=== PATIENT | male | born 1960 | race Two or more races ===

== ENCOUNTER 2018-08-24 17:07 | Emergency (ER) | payer OTHER ==
--- NOTE | 2018-08-24 17:11 | PDOC ---
Rapid Medical Evaluation Chief Complaint: Urinary Problem Time Seen by Provider: 08/24/18 17:10 Medical Evaluation: Allergies Allergy/AdvReac Type Severity Reaction Status Date / Time No Known Allergies Allergy Verified 08/24/18 17:10 08/24/18 17:10 I have performed a brief in-person evaluation of this patient. The patient presents with a chief complaint of:urinary retention a/ lower abd discomfort. H/o htn, cad w/ 2 stents Pertinent physical exam findings:stable I have ordered the following:labs/ua/ucx, liu (placed by triage nurse) The patient will proceed to the ED for further evaluation. Discharge Disposition - Diagnosis Urinary retention - Referrals Referrals: José Miguel Bailey MD [Primary Care Provider] - - Patient Instructions - Post Discharge Activity
[2018-08-24 17:13] VITALS: PULSE 67; TEMP 98.6; BMI 28.2
--- NOTE | 2018-08-24 17:28 | PDOC ---
History of Present Illness - General Chief Complaint: Urinary Problem Stated Complaint: CONSTIPATION Time Seen by Provider: 08/24/18 17:10 - History of Present Illness Initial Comments: 08/24/18 17:28 57 year old man, with a significant past medical history of hypertension, smoking, CAD (2 stents) who presents with 2 days of urinary retention with 6+ attempts to urinate but only dribbling urine. He developed suprapubic pain yesterday afternoon and L flank pain this afternoon. He was seen by PCP (Lynn) 3 weeks ago where he had a prostate exam that was negative. He denies any recent blood in the urine, testicular pain, recent travel, denies any new medications. Additionally he notes that he has had swelling in his legs bilaterally for 5 months, only occurring at the end of the day when he has been on his feet. Smokes 1ppd for > 6 years PCP: Lynn Renal: Nancy Past History - Past Medical History Allergies/Adverse Reactions: Allergies Allergy/AdvReac Type Severity Reaction Status Date / Time No Known Allergies Allergy Verified 08/24/18 17:10 Home Medications: Ambulatory Orders Aspirin [Tala Chewable Aspirin] 81 mg PO DAILY 04/05/16 Bisoprolol Fumarate [Zebeta (Nf) -] 5 mg PO DAILY 04/05/16 Atorvastatin Ca [Lipitor] 10 mg PO HS #20 tablet 04/06/16 Cardiac Disorders: Yes (stent cardiac CKD) COPD: No HTN: Yes - Surgical History Cardiac Surgery: Yes (stent) - Immunization History Immunization Up to Date: Yes - Suicide/Smoking/Psychosocial Hx Smoking History: Current every day smoker Have you smoked in the past 12 months: Yes Number of Cigarettes Smoked Daily: 20 Information on smoking cessation initiated: No *Physical Exam - Vital Signs Last Vital Signs Temp Pulse Resp BP Pulse Ox 98.6 F 67 18 160/93 99 08/24/18 17:10 08/24/18 17:10 08/24/18 17:10 08/24/18 17:10 08/24/18 17:10 - Physical Exam Comments: 08/24/18 17:55 GENERAL: Awake, alert, and fully oriented, in no acute distress HEAD: No signs of trauma, normocephalic, atraumatic EYES: EOMI, sclera anicteric, conjunctiva clear ENT: oropharynx clear without exudates. Moist mucosa NECK: Normal ROM, supple LUNGS: No distress, speaks full sentences, clear to auscultation bilaterally HEART: Regular rate and rhythm, normal S1 and S2, no murmurs, rubs or gallops, peripheral pulses normal and equal bilaterally. ABDOMEN: Soft, suprapubic tenderness to palpation, normoactive bowel sounds. No guarding, no rebound. No masses EXTREMITIES : Normal inspection, Normal range of motion, no edema. No clubbing or cyanosis. NEUROLOGICAL: Cranial nerves II through XII grossly intact. Normal speech, normal gait, no focal sensorimotor deficits SKIN: Warm, Dry, normal turgor, no rashes or lesions noted GENITAL: R testicle w/ elevate lie, no inguinal lymphadenopathy, tenderness to testicular palpation, no erythema, lesions or ulcers Moderate Sedation - Procedure Monitoring Vital Signs: Procedure Monitoring Vital Signs Temperature 98.6 F 08/24/18 17:10 Pulse Rate 67 08/24/18 17:10 Respiratory Rate 18 08/24/18 17:10 Blood Pressure 160/93 08/24/18 17:10 O2 Sat by Pulse Oximetry (%) 99 08/24/18 17:10 ED Treatment Course - LABORATORY CBC & Chemistry Diagram: 08/24/18 18:00 08/24/18 18:00 Medical Decision Making - Medical Decision Making 08/24/18 17:50 57 year old man, with a significant past medical history of hypertension, smoking, CAD (2 stents) who presents with 2 days of urinary retention with 6+ attempts to urinate but only dribbling urine. He developed suprapubic pain yesterday afternoon and L flank pain this afternoon. He was seen by PCP (Lynn) 3 weeks ago where he had a prostate exam that was negative. He denies any recent blood in the urine, testicular pain, recent travel, denies any new medications. ED Course: Consider BPH vs prostate / bladder cancer vs neurogenic bladder Patient with tenderness to testicular palpation will r/o testicular torsion as the R testicle has an elevated lie Dr. Cruz made aware of patient, requests US and Sanna for nephro 08/24/18 19:39 labwork within normal limits pending US read 08/24/18 20:18 Attending spoke with Nancy agree that patient can be dsicharged home with flomax, leg bag and follow to Dr. Jose Velez *DC/Admit/Observation/Transfer Diagnosis at time of Disposition: Urinary retention - Discharge Dispostion Disposition: HOME Condition at time of disposition: Stable Decision to Admit order: No - Referrals Referrals: José Miguel Bailey MD [Primary Care Provider] - - Patient Instructions Printed Discharge Instructions: DI for Urinary Retention in Men Additional Instructions: You were seen in the ED for complaints of urinary retention In the ED you were evaluated with labwork and imaging. Your results were largely unremarkable. There does not appear to be an acute need for immediate hospitalization. You are advised to follow up with your Primary Care Physician within 1 week. You were given a referral to Nephrology and are advised to follow up within 1 week. You were given a prescription for Flomax and are advised to take the medication as indicated. Return to the ED immediately if you experience worsening urinary retention, blood in the urine, pelvic pain or pressure, flank or side pain, fevers, chest pain or loss of consciousness. - Post Discharge Activity
[2018-08-24 17:51] LABS: URINE APPEARANCE CLEAR; URINE BILIRUBIN NEGATIVE (<2.0 mg/dL); URINE COLOR LTYELLOW; URINE GLUCOSE (UA) NEGATIVE (NEGATIVE); URINE KETONE NEGATIVE (NEGATIVE); URINE LEUK ESTERASE NEGATIVE (NEGATIVE); URINE NITRITE NEGATIVE (NEGATIVE); URINE PROTEIN NEGATIVE (NEGATIVE); URINE UROBILINOGEN NEGATIVE mg/dL (0.2-1.0)
[2018-08-24 18:17] LABS: URINE MUCUS RARE
[2018-08-24 18:30] LABS: BASO % 0.2 % (0-2.0); EOS % 0.5 % (0-4.5); HEMATOCRIT 44.2 % (35.4-49); HEMOGLOBIN 15.3 GM/dL (11.7-16.9); MCH 32.3 pg (25.7-33.7); MCHC 34.5 g/dl (32.0-35.9); MEAN CELL VOLUME 93.5 fl (80-96); MEAN PLT VOLUME 8.1 fl (7.5-11.1); MONO % 5.9 % (3.8-10.2); NEUT % 80.4 % (42.8-82.8); PLATELET COUNT 210 K/MM3 (134-434); RBC 4.73 M/mm3 (4.00-5.60); RDW 13.7 % (11.9-15.9); WHITE BLOOD COUNT 7.6 K/mm3 (4.0-10.0)
[2018-08-24 18:41] VITALS: BP 123/77
[2018-08-24 19:18] LABS: ALK PHOS 61 U/L (45-117); ANION GAP 7 MMOL/L (8-16); BILIRUBIN,TOTAL 0.4 mg/dL (0.2-1); BLOOD UREA NITROGEN 19 mg/dL (7-18); CALCIUM 10.1 mg/dL (8.5-10.1); CHLORIDE 110 mmol/L (98-107); CO2 26 mmol/L (21-32); GLUCOSE,RANDOM 93 mg/dL (74-106); SGOT/AST 19 U/L (15-37); SGPT/ALT 24 U/L (13-61); SODIUM 143 mmol/L (136-145); TOT PROT 6.9 g/dl (6.4-8.2)
--- NOTE | 2018-08-24 19:22 | PDOC ---
Attending Attestation - HPI HPI: 08/24/18 19:38 The patient is a 57 year old male with a PMH of HTN, smoking, CAD (2 stents) who presents to the ER with urinary retention for the past 2 days. Patient is also complaining of suprapubic pain since yesterday and left flank pain today. Patient was seen by PCP, Dr. Bailey, 3 weeks ago and had a negative prostate exam. Patient admits to BL leg swelling for the past 5 months, but denies any cp, sob , fever, chills, N/V/D/C. PCP: Lynn Renal: [facility] Social Hx: Smokes 1ppd for > 6 years. Denies alcohol or drug use. - Physicial Exam PE: 08/24/18 19:38 GENERAL: Awake, alert, and fully oriented, in no acute distress HEAD: No signs of trauma, normocephalic, atraumatic EYES: EOMI, sclera anicteric, conjunctiva clear ENT: oropharynx clear without exudates. Moist mucosa NECK: Normal ROM, supple LUNGS: No distress, speaks full sentences, clear to auscultation bilaterally HEART: Regular rate and rhythm, normal S1 and S2, no murmurs, rubs or gallops, peripheral pulses normal and equal bilaterally. ABDOMEN: Soft, suprapubic tenderness to palpation, normoactive bowel sounds. No guarding, no rebound. No masses EXTREMITIES : Normal inspection, Normal range of motion, no edema. No clubbing or cyanosis. NEUROLOGICAL: Cranial nerves II through XII grossly intact. Normal speech, normal gait, no focal sensorimotor deficits SKIN: Warm, Dry, normal turgor, no rashes or lesions noted GENITAL: (+) Liu in place, draining clear yellow urine. <Agnieszka Jerome - Last Filed: 08/24/18 19:45> - Resident Resident Name: Rama Turcios - ED Attending Attestation I have performed the following: I have examined & evaluated the patient, The case was reviewed & discussed with the resident, I agree w/resident's findings & plan, Exceptions are as noted - Medical Decision Making 08/24/18 19:22 I, Dr. Jovita Ramirez, DO, attest that this document has been prepared under my direction and personally reviewed by me in its entirety. I further attest, that it accurately reflects all work, treatment, procedures and medical decision -making performed by me. 08/24/18 19:47 a/p: 57yo male with urinary retention -liu placed upon arrival and drained 1000cc of clear yellow urine -feeling better since having liu placed -PMD Dr. Lynn Abdalla is Dr. Bates -will send labs, ua 08/24/18 19:49 ua clear labs reviewed call placed to dr. Bates 08/24/18 19:[address] Bates who recommends outpt follow up with Dr. Marshall Velez and flomax stable to go home with a leg bag 08/24/18 20:21 enlarged prostate on ultrasound <Jovita Ramirez - Last Filed: 08/24/18 20:22>
[2018-08-24] MEDS ORDERED: TAMSULOSIN HCL 0.4 MG CAP PO ONE (19:58)
[2018-08-24] MEDS ORDERED: TAMSULOSIN HCL 0.4 MG CAP ONE (20:10)
[2018-08-24] MEDS ORDERED: ACETAMINOPHEN 325 MG TABLET (FP) PO ONE (21:25)
[2018-08-24] MEDS ORDERED: ACETAMINOPHEN 325 MG TABLET (FP) ONE (21:29)
[2018-08-24] MEDS ORDERED: PHENAZOPYRIDINE HCL 100 MG TABLET (FP) PO ONE (21:32)
[2018-08-24] MEDS ORDERED: PHENAZOPYRIDINE HCL 100 MG TABLET (FP) ONE (21:37)
== END 2018-08-24 23:06 | disposition home or self-care (01) ==
LOC: JER 17:07
PROC: 0T9B70Z Drainage of Bladder with Drainage Device, Via Natural or Artificial Opening (ICD-10-PCS; principal; 2018-08-24)
DX: R33.8 Other retention of urine (principal); I25.10 Atherosclerotic heart disease of native coronary artery without angina pectoris; I12.9 Hypertensive chronic kidney disease with stage 1 through stage 4 chronic kidney disease, or unspecified chronic kidney disease; N18.9 Chronic kidney disease, unspecified; Z95.5 Presence of coronary angioplasty implant and graft; F17.210 Nicotine dependence, cigarettes, uncomplicated
CPT/HCPCS: 36415; 51702; 76775-TC; 76856-TC; 76870-TC; 80053; 81003; 81015; 85025; 87086; 99283-25

== ENCOUNTER 2018-09-12 10:22 | Day surgery (SDC) | payer OTHER ==
[2018-09-09 11:17] VITALS: BMI 27.3
[2018-09-12 11:30] LABS: INR 1.01 (0.83-1.09); PROTHROMBIN TIME (PATIENT) 11.9 SEC (9.7-13.0)
[2018-09-12 11:32] LABS: ACTIVATED PTT 30.1 SECONDS (25.2-36.5)
[2018-09-12] MEDS ORDERED: MIDAZOLAM HCL 2 MG/2 ML SINGLE DOSE VIAL ONE ×2 (13:38→15:50)
[2018-09-12] MEDS ORDERED: BUPIVACAINE 0.75% IN DEXTROSE/PF 2ML AMPULE NR ONE (14:01)
[2018-09-12] MEDS ORDERED: DEXAMETHASONE SOD PHOSPHATE 4 MG/1 ML VIAL ONE (14:26)
[2018-09-12] MEDS ORDERED: LIDOCAINE HCL/PF 2% SDV 5ML VIAL ONE (14:39)
[2018-09-12] MEDS ORDERED: KETAMINE HCL 200 MG/20 ML VIAL ONE (15:37)
--- NOTE | 2018-09-12 16:00 | OP ---
Operative Note - Note: Operative Date: 09/12/18 Pre-Operative Diagnosis: bph/urinary retention Operation: transurethral resection and vaporization of the prostate Post-Operative Diagnosis: Same as Pre-op Surgeon: Kale Isidro Anesthesia: Spinal Estimated Blood Loss (mls): 50 Drains & Tubes with Location: 26 fr liu
[2018-09-12] MEDS ORDERED: oxyCODONE HCL 5 MG TABLET PO PRN (16:10)
[2018-09-12] MEDS ORDERED: ONDANSETRON 4 MG/2 ML VIAL IVPUSH PRN (16:10)
[2018-09-12] MEDS ORDERED: LACTATED RINGERS SOLUTION 1,000 ML IV SCH (16:15)
--- NOTE | 2018-09-12 20:24 | EKG ---
Test Reason : Blood Pressure : / mmHG Vent. Rate : 059 BPM Atrial Rate : 059 BPM P-R Int : 144 ms QRS Dur : 082 ms QT Int : 400 ms P-R-T Axes : 053 004 004 degrees QTc Int : 396 ms SINUS BRADYCARDIA MINIMAL VOLTAGE CRITERIA FOR LVH, MAY BE NORMAL VARIANT BORDERLINE ECG WHEN COMPARED WITH ECG OF 06-APR-2016 09:15, NO SIGNIFICANT CHANGE WAS FOUND Confirmed by DONNIE ELLSWORTH, MARIAA ([id number]) on 09/12/2018 8:23:54 PM Referred By: Kale Isidro Confirmed By:MARIAA FIELDS MD
--- NOTE | 2018-09-12 21:29 | HP ---
CHIEF COMPLAINT: s/p TURP, abdominal pain PCP:Dr. Bender HISTORY OF PRESENT ILLNESS: 57 year old male with past medical history of hypertension ,2 coronary stents, hyperlipidemia and BPH/urinary retention who underwent TURP with liu today by Dr. Cuevas. Post procedure he did well. He denied fever, chest pain, or shortness of breath. He reports some abdominal discomfort post surgical procedure. He is pending a CT scan of chest without contrast. He is being admitted to observation for pain management and to evaluate CT scan of abdomen [facility] post procedure. Recent Travel: Denies PAST MEDICAL HISTORY: Hypertension Coronary Artery Disease Hyperlipidemia BPH/urinary retention PAST SURGICAL HISTORY: Denies Social History: Smoking:Denies Alcohol:Denies Drugs: Denies Family History:noncontributory Allergies No Known Allergies Allergy (Verified 09/12/18 11:29) HOME MEDICATIONS: Home Medications Medication Instructions Recorded Aspirin [Tala Chewable Aspirin] 81 mg PO DAILY 04/05/16 Bisoprolol Fumarate [Zebeta (Nf) -] 5 mg PO DAILY 04/05/16 Atorvastatin Ca [Lipitor] 10 mg PO HS #20 tablet 04/06/16 Tamsulosin HCl [Flomax] 0.4 mg PO DAILY #14 capsule 08/24/18 levoFLOXacin [Levaquin -] 500 mg PO DAILY #7 tablet 09/12/18 REVIEW OF SYSTEMS CONSTITUTIONAL: Absent: fever, chills, diaphoresis, generalized weakness, malaise, loss of appetite, weight change HEENT: Absent: rhinorrhea, nasal congestion, throat pain, throat swelling, difficulty swallowing, mouth swelling, ear pain, eye pain, visual changes CARDIOVASCULAR: Absent: chest pain, syncope, palpitations, irregular heart rate, lightheadedness , peripheral edema RESPIRATORY: Absent: cough, shortness of breath, dyspnea with exertion, orthopnea, wheezing, stridor, hemoptysis GASTROINTESTINAL: Absent: abdominal pain, abdominal distension, nausea, vomiting, diarrhea, constipation, melena, hematochezia GENITOURINARY: Absent: dysuria, frequency, urgency, hesitancy, hematuria, flank pain, genital pain MUSCULOSKELETAL: Absent: myalgia, arthralgia, joint swelling, back pain, neck pain SKIN: Absent: rash, itching, pallor HEMATOLOGIC/IMMUNOLOGIC: Absent: easy bleeding, easy bruising, lymphadenopathy, frequent infections ENDOCRINE: Absent: unexplained weight gain, unexplained weight loss, heat intolerance, cold intolerance NEUROLOGIC: Absent: headache, focal weakness or paresthesias, dizziness, unsteady gait, seizure, mental status changes, bladder or bowel incontinence PSYCHIATRIC: Absent: anxiety, depression, suicidal or homicidal ideation, hallucinations. PHYSICAL EXAMINATION Vital Signs - 24 hr 09/12/18 09/12/18 09/12/18 11:35 11:41 16:00 Temperature 97.7 F Pulse Rate 69 60 Respiratory 16 16 Rate Blood Pressure 139/83 131/89 O2 Sat by Pulse 100 100 Oximetry (%) 09/12/18 09/12/18 09/12/18 16:15 16:30 16:45 Temperature Pulse Rate 62 57 L 58 L Respiratory 18 18 18 Rate Blood Pressure 157/91 140/92 145/93 O2 Sat by Pulse 100 98 98 Oximetry (%) 09/12/18 09/12/18 09/12/18 17:00 17:15 17:30 Temperature Pulse Rate 57 L 60 56 L Respiratory 18 18 18 Rate Blood Pressure 147/91 136/90 131/95 O2 Sat by Pulse 96 97 99 Oximetry (%) 09/12/18 09/12/18 09/12/18 17:45 18:00 18:15 Temperature Pulse Rate 63 63 65 Respiratory 18 18 18 Rate Blood Pressure 139/80 120/81 134/86 O2 Sat by Pulse 97 95 96 Oximetry (%) 09/12/18 18:30 Temperature 98.1 F Pulse Rate 79 Respiratory 16 Rate Blood Pressure 106/65 O2 Sat by Pulse 100 Oximetry (%) GENERAL: awake, alert, and fully oriented, in no acute distress HEAD: normal with no signs of trauma. EYES: pupils equal, round and reactive Neck no JVD LUNGS: breath sounds equal, clear to auscultation bilaterally. no wheezes, and no crackles. no accessory muscle use. HEART: Regular rate and rhythm, normal S1 and S2 without murmur, rub or gallop. ABDOMEN: soft, nontender on palpation, not distended, normoactive bowel sounds UPPER EXTREMITIES: 2+ pulses, warm, well-perfused. No cyanosis. No clubbing. No peripheral edema. LOWER EXTREMITIES: 2+ pulses, warm, well-perfused. No calf tenderness. No peripheral edema. NEUROLOGICAL: Normal speech PSYCHIATRIC: Cooperative. Good eye contact. Appropriate mood and affect SKIN: Warm, dry, normal turgor, no rashes or lesions noted, normal capillary refill. Laboratory Results - last 24 hr 09/12/18 10:51 PT with INR 11.90 INR 1.01 PTT (Actin FS) 30.1 ASSESSMENT/PLAN: 57 year old male with past medical history of hypertension and 2 coronary stents , hyperlipidemia and BPH/urinary retention who underwent TURP today by Dr. Marshall Newman. Post procedure he did well. He denied chest pain, or shortness of breath. Patient is being admitted for pain management and evaluation with CT scan of abdomen and pelvis WOC for abdominal discomfort. POD#0 TURP with liu Patient with some abdominal pain. He remains afebrile. CT Scan of abdomen/pelvis WOC showed a small amount of air in the urinary bladder, and fluid around urinary badder mild hydrourethernephrosis and perihepatic fluid. Postop urine output is good. Continue to monitor urine output closely. Continue with pain management with oxycodone. Continue with liu. Coronary Artery Disease Patient denies active anginal symptoms. Continue with aspirin and atenolol. Hypertension SBP 140-150. Continue atenolol. Hyperlipidemia Continue with statin therapy. FEN NPO. Continue with IV fluids LR, advance to clears in the morning if CT scan of abdomen and pelvis normal, monitor electrolytes. DVT Prophylaxsis SCD's bilaterally. Visit type - Emergency Visit Emergency Visit: No - New Patient This patient is new to me today: Yes Date on this admission: 09/12/18 - Critical Care Critical Care patient: No
[2018-09-12] MEDS ORDERED: ATORVASTATIN CA 10 MG TABLET (FP) PO SCH (22:00)
[2018-09-13] MEDS: oxyCODONE HCL 5 MG TABLET PO PRN ×2 (01:59→09:37)
[2018-09-13 02:18] VITALS: TEMP 99
--- NOTE | 2018-09-13 06:38 | OP ---
DATE OF OPERATION: 09/12/2018 ATTENDING: Olimpia Zambrano MD PREOPERATIVE DIAGNOSIS: Benign prostatic hypertrophy and urinary retention. POSTOPERATIVE DIAGNOSIS: Benign prostatic hypertrophy and urinary retention. PROCEDURE: Transurethral resection and vaporization of the prostate utilizing bipolar system. ANESTHESIA: Spinal. OPERATION FOLLOWS: The patient has a history of acute urinary retention. The patient has failed multiple trials of voiding while on Flomax at 0.8 mg daily. The patient accepts all risks and benefits for the procedure. The patient was brought in the operating room, placed in supine position on the operating room table. Anesthesia and preoperative antibiotics were administered without complications. Patient was then placed in the dorsal lithotomy position and prepped and draped in the usual sterile manner. A resectoscope was placed under visualization into the bladder. The bladder was investigated and noted to have no evidence of stones or neoplasm. A 3+ obstructive prostate was noted. Resection of the prostate in order to debulk the prostate was performed initially. The margins of the resection were the bladder neck proximally and the verumontanum distally. The resection was performed in a 360-degree fashion. The resection was taken down to the level of the pseudocapsule of the prostate. Once this was performed, all prostatic chips were evacuated from the bladder utilizing the nap- Naturally Attached Parents evacuator. At this point, the working element, which had been the loop, was changed to a button. Vaporization and cauterization was then ensured utilizing the button element of the bipolar system. Residual tissue was vaporized, and excellent hemostasis was attained within the prostatic fossa. The margins of the vaporization and cauterization were the bladder neck proximally and the verumontanum distally. This was done again in a 360-degree fashion. Excellent hemostasis was attained. The bladder was investigated and noted to have no evidence of residual prostatic tissue. There was no evidence of perforation of the bladder. The abdomen was soft on examination during the procedure. With excellent hemostasis, the resectoscope was removed, and a Fuchs catheter placed, 30 mL were inflated into the balloon of the catheter and placed on light traction. Excellent drainage was noted which was light pink in color. The disposition of the patient was to the recovery room. The catheter had been placed to straight drainage. The patient will be observed in the recovery room and the postop area. If the patient continues to do well, he will be discharged home. OLIMPIA ZAMBRANO M.D. /[id number]
[2018-09-13 07:51] LABS: HEMATOCRIT 35.9 % (35.4-49); HEMOGLOBIN 12.5 GM/dL (11.7-16.9); MCH 31.9 pg (25.7-33.7); MEAN CELL VOLUME 91.1 fl (80-96); MEAN PLT VOLUME 7.4 fl (7.5-11.1); PLATELET COUNT 174 K/MM3 (134-434); RBC 3.94 M/mm3 (4.00-5.60); RDW 13.4 % (11.9-15.9); WHITE BLOOD COUNT 8.5 K/mm3 (4.0-10.0)
[2018-09-13 08:48] LABS: ANION GAP 8 MMOL/L (8-16); BLOOD UREA NITROGEN 16 mg/dL (7-18); CALCIUM 7.9 mg/dL (8.5-10.1); CHLORIDE 108 mmol/L (98-107); CO2 24 mmol/L (21-32); CREATININE 0.9 mg/dL (0.55-1.3); GLUCOSE,RANDOM 78 mg/dL (74-106); MAGNESIUM 1.8 mg/dL (1.8-2.4); PHOSPHOROUS 3.4 mg/dL (2.5-4.9); POTASSIUM 3.9 mmol/L (3.5-5.1); SODIUM 139 mmol/L (136-145)
[2018-09-13] MEDS ORDERED: ASPIRIN 81 MG CHEWABLE TABLETS PO SCH (10:00)
[2018-09-13] MEDS ORDERED: TAMSULOSIN HCL 0.4 MG CAP PO SCH (10:00)
[2018-09-13] MEDS ORDERED: ATENOLOL 50 MG TABLET (FP) PO SCH (10:00)
[2018-09-13 11:31] VITALS: BP 135/72; PULSE 85
--- NOTE | 2018-09-14 16:29 | PATH ---
Surgical Pathology Report Patient Name: TOO UNDERWOOD [facility]. Rec. #: [id number] /Age/Gender: 1960 (Age: 57) / M Account: [id number] Location: [facility] Taken: 09/12/2018 Received: 09/13/2018 Reported: 09/14/2018 Physicians: Kale Isidro Specimen(s) Received PROSTATE TISSUE Clinical History BPH Final Diagnosis PROSTATE TISSUE, TRANSURETHRAL RESECTION AND VAPORIZATION OF PROSTATE: BENIGN PROSTATIC TISSUE WITH FOCAL ACUTE AND CHRONIC INFLAMMATION, ACINAR ATROPHY, CYSTIC CHANGES, GLANDULAR AND STROMAL HYPERPLASIA. Electronically Signed Madeleine Poole M.D. Gross Description Received in formalin labeled "prostate tissue," is a 14 g, 8.5 x 7.0 x 0.8 cm aggregate of multiple treviño, irregular, firm to rubbery portions of tissue, consistent with prostate chips. The specimen is entirely submitted in 10 cassettes. /09/13/2018 [facility]09/13/2018
== END 2018-09-13 14:38 | disposition home or self-care (01) ==
LOC: JASU-SURG 10:22 → J8W 22:31 → JASU-SURG 09-13 14:38
PROVIDERS: ATTEND Urology
PROC: 0VT08ZZ Resection of Prostate, Via Natural or Artificial Opening Endoscopic (ICD-10-PCS; principal; 2018-09-12 11:00)
DX: N40.1 Benign prostatic hyperplasia with lower urinary tract symptoms (principal); R33.8 Other retention of urine
CPT/HCPCS: 36415; 74176-TC; 80048; 83735; 84100; 85027; 85610; 85730; 88305-TC; 93005; 93010; 94760